=== PATIENT | male | born 1975 | race Hispanic/Latino ===

== ENCOUNTER 2017-07-26 13:19 | Emergency (ER) | payer OTHER ==
[2017-07-26 13:38] VITALS: BP 121/81; PULSE 79; RESP 16; TEMP 97.6; O2SAT 100
[2017-07-26] MEDS ORDERED: TDAP Vaccine 0.5 mL Syr IM ONE (14:17)
--- NOTE | 2017-07-26 18:19 | ED PDOC ---
Arrival/HPI - General Chief Complaint: Abnormal Skin Integrity Time Seen by Provider: 07/26/17 14:17 Historian: Patient - History of Present Illness Narrative History of Present Illness (Text): 07/26/17 14:14 A 42 year old male, with no significant past medical history, presents to the emergency department complaining of left foot laceration. Patient reports stepping on nail while wearing sneaker. Nail did not go all the way in. Patient pulled out nail, and found nail went into foot superficially. Patient notes bleeding stopped [employer]. Tetanus shot up-to-date unknown. No PMD Time/Duration: Prior to Arrival Symptom Onset: Sudden Symptom Course: Unchanged Past Medical History - Provider Review Nursing Documentation Reviewed: Yes - Infectious Disease Hx of Infectious Diseases: None - Psychiatric Hx Substance Use: No - Anesthesia Hx Anesthesia: No Family/Social History - Physician Review Nursing Documentation Reviewed: Yes Family/Social History: No Known Family HX Smoking Status: Heavy Smoker > 10 Cigarettes Daily Hx Alcohol Use: Yes Frequency of alcohol use: Socially Hx Substance Use: No Allergies/Home Meds Allergies/Adverse Reactions: Allergies No Known Allergies Allergy (Verified 07/26/17 13:36) Review of Systems - Physician Review All systems were reviewed & negative as marked: Yes - Review of Systems Constitutional: absent: Fevers Skin: Laceration (left foot superfical laceration) Physical Exam Vital Signs Reviewed: Yes Vital Signs Temp Pulse Resp BP Pulse Ox 07/26/17 13:36 97.6 F 79 16 121/81 100 Temperature: Afebrile Blood Pressure: Normal Pulse: Regular Respiratory Rate: Normal Appearance: Positive for: Well-Appearing Pain Distress: None Mental Status: Positive for: Alert and Oriented X 3 - Systems Exam Head: Present: Atraumatic, Normocephalic Pupils: Present: PERRL Extroacular Muscles: Present: EOMI Conjunctiva: Present: Normal Mouth: Present: Moist Mucous Membranes Neck: Present: Normal Range of Motion Respiratory/Chest: Present: Clear to Auscultation, Good Air Exchange. No: Respiratory Distress, Accessory Muscle Use Cardiovascular: Present: Regular Rate and Rhythm, Normal S1, S2. No: Murmurs Abdomen: Present: Normal Bowel Sounds. No: Tenderness, Distention, Peritoneal Signs Back: Present: Normal Inspection Upper Extremity: Present: Normal Inspection. No: Cyanosis, Edema Lower Extremity: Present: Other (punctate laceration on left foot, no active bleeding, no pain or tenderness to touch) Neurological: Present: GCS=15, CN II-XII Intact, Speech Normal Skin: Present: Warm, Dry, Normal Color. No: Rashes Psychiatric: Present: Alert, Oriented x 3, Normal Insight, Normal Concentration Medical Decision Making ED Course and Treatment: 07/26/17 14:17 Impression: 42 year old male with superficial incision of nail. Physical exam shows punctate laceration to left foot with no active bleeding, no pain or tenderness to touch; rest of physical examination is normal. Plan: -- Boostrix Vaccine -- Reassess and disposition Progress Notes: - Medication Orders Current Medication Orders: Discontinued Medications Tetanus/Reduced Diphtheria/Acell Pertussis (Boostrix Vaccine Inj) 0.5 ml IM .ONCE ONE Stop: 07/26/17 14:18 Last Admin: 07/26/17 14:45 Dose: 0.5 ml MAR Immunization Data Document 07/26/17 14:45 EQ (Rec: 07/26/17 14:46 EQ [facility] [id number] Immunization Data Vaccine Information Sheet Given No Immunization Registry Document 07/26/17 14:45 EQ (Rec: 07/26/17 14:46 EQ [facility] [id number] Immunization Registry Consent Date 07/26/17 - Scribe Statement The provider has reviewed the documentation as recorded by the Kellie Johnson Provider Scribe Attestation: All medical record entries made by the Scribe were at my direction and personally dictated by me. I have reviewed the chart and agree that the record accurately reflects my personal performance of the history, physical exam, medical decision making, and the department course for this patient. I have also personally directed, reviewed, and agree with the discharge instructions and disposition. Disposition/Present on Arrival - Present on Arrival Any Indicators Present on Arrival: No History of DVT/PE: No History of Uncontrolled Diabetes: No Urinary Catheter: No History of Decub. Ulcer: No History Surgical Site Infection Following: None - Disposition Have Diagnosis and Disposition been Completed?: Yes Diagnosis: Puncture wound of foot Disposition: HOME/ ROUTINE Disposition Time: 14:10 Condition: GOOD Discharge Instructions (ExitCare): Puncture Wound (ED) Additional Instructions: Thank you for letting us take care of you today. The emergency medical care you received today was directed at your acute symptoms. If you were prescribed any medication, please fill it and take as directed. It may take several days for your symptoms to resolve. Return to the Emergency Department if your symptoms worsen, do not improve, or if you have any other problems. Please contact your doctor or call one of the physicians/clinics you have been referred to that are listed on the Patient Visit Information form that is included in your discharge packet. Bring any paperwork you were given at discharge with you along with any medications you are taking to your follow up visit. Our treatment cannot replace ongoing medical care by a primary care provider (PCP) outside of the emergency department. Thank you for allowing the [facility] team to be part of your care today. Follow up with your doctor in 2-3 days for re-evaluation and further management. Prescriptions: Cephalexin [cephalexin] 500 mg PO Q6 #28 cap Sulfamethoxazole/Trimethoprim [Bactrim DS 800 mg-160 mg] 1 tab PO BID #14 tab Referrals: Bon Spence, [Primary Care Provider] - Follow up with primary Forms: WORK NOTE
== END 2017-07-26 14:25 | disposition home or self-care (01) ==
LOC: ED 13:19
DX: S91.332A Puncture wound without foreign body, left foot, initial encounter (principal); W45.0XXA Nail entering through skin, initial encounter; Y92.89 Other specified places as the place of occurrence of the external cause; Z23 Encounter for immunization